=== PATIENT | female | born 1990 | race Hispanic/Latino ===

== ENCOUNTER 2018-03-13 20:29 | Emergency (ER) | payer MEDICAID, SELFPAY ==
[2018-03-13 21:20] LABS: #Basophils 0.1 thou/uL (0.0-0.2); #Eosinphils 0.3 thou/uL (0.0-0.7); #Monocytes 0.7 thou/uL (0.11-0.59); #Neutrophils 8.4 thou/uL (1.40-6.50); %Basophils 0.5 % (0.0-1.0); %Eosinophils 2.3 % (0.0-10.0); %Lymphocytes 24.2 % (21.0-51.0); %Monocytes 5.7 % (0.0-10.0); %Neutrophils 67.2 % (42.0-75.0); Mean Corpuscular HGB CONC 33.5 g/dL (32.0-36.0); Mean Corpuscular Hemoglobin 26.2 pg (27.0-31.0); Mean Corpuscular Volume 78.2 fL (78.0-98.0); Mean Platelet Volume 6.9 fL (7.4-10.4); Platelet Count 301 thou/uL (130-400); RBC Distribution Width 13.2 % (11.5-14.5); Red Blood Cell (RBC) Count 4.57 mill/uL (4.20-5.40); White Blood Cell (WBC) Count 12.5 thou/uL (4.8-10.8)
--- NOTE | 2018-03-14 07:38 | ULT ---
PELVIC ULTRASOUND: HISTORY: Pelvic pain. Heavy vaginal bleeding. COMPARISON: None. TECHNIQUE: Transabdominal and endovaginal imaging of the pelvis was performed. Ovaries are interrogated with gr ay scale, color flow, Doppler imaging, and spectral waveform analysis. FINDINGS: The uterus is identified, measuring 7.0 x 11.1 x 5.8 cm. Evaluation of the uterus is limited on the endovaginal images. Myometrial masses could easily be obscured. There is an anechoic focus in what appears to be the lower uterine segment on the endovaginal images. Additional images demonstrate the anechoic focus to be higher up and toward the fundus of the uteru s. Dye Maker states that this anechoic focus moved during real-time imaging. Within this anechoic focus, which is presumed to be the gestational sac, is a questionable yolk sac. Possible pole with a diameter of 1.05 cm corresponding to a gestational age of 7 weeks 1 day. No definite h eart tones. No free fluid. The left ovary has a normal echotexture measuring 0.8 x 2.6 x 1.7 cm. The right ovary has a normal e chotexture measuring 2.8 x 2.4 x 1.6 cm. OVARIAN DOPPLER: Vascular flow to both ovaries. IMPRESSION: Anechoic focus which has a different location during real-time imaging varying between the uterine fu ndus and the lower uterine segment. This anechoic focus also has irregular shape during real-time im aging. There does appear to be a pole without evidence of heart tones. Findings may rep resent an impending spontaneous . Followup ultrasound and serial beta HCGs are recommended. POS: [facility]
[2018-03-15 19:03] LABS: Chlamydia by PCR Not Detected (NotDetected); GC by PCR Not Detected (NotDetected)
== END 2018-03-14 00:24 | disposition home or self-care (01) ==
LOC: ERS 20:29
DX: O20.0 Threatened abortion (principal); Z3A.09 9 weeks gestation of pregnancy
CPT/HCPCS: 36415; 76856; 84702; 85025; 86900; 86901; 87480; 87491; 87510; 87591; 87660

== ENCOUNTER 2018-09-21 17:37 | Emergency (ER) | payer SELFPAY ==
[2018-09-21 18:24] LABS: #Basophils 0.1 thou/uL (0.0-0.2); #Eosinphils 0.2 thou/uL (0.0-0.7); #Lymphocytes 2.5 thou/uL (1.20-3.40); #Monocytes 0.7 thou/uL (0.11-0.59); #Neutrophils 5.8 thou/uL (1.40-6.50); %Basophils 1.1 % (0.0-1.0); %Eosinophils 2.4 % (0.0-10.0); %Lymphocytes 27.2 % (21.0-51.0); %Monocytes 7.7 % (0.0-10.0); %Neutrophils 61.6 % (42.0-75.0); Hemoglobin 12.2 g/dL (12.0-16.0); Mean Corpuscular HGB CONC 31.4 g/dL (32.0-36.0); Mean Corpuscular Hemoglobin 25.1 pg (27.0-31.0); Mean Platelet Volume 7.1 fL (7.4-10.4); Platelet Count 304 thou/uL (130-400); RBC Distribution Width 13.3 % (11.5-14.5); Red Blood Cell (RBC) Count 4.85 mill/uL (4.20-5.40); White Blood Cell (WBC) Count 9.4 thou/uL (4.8-10.8)
[2018-09-21 18:47] LABS: BHCG - Serum POSITIVE (NEGATIVE); Pregs Control Background? CLEAR/WHITE (CLR/WHITE); Pregs Control Bar Appear? YES (CONTROL BAR)
--- NOTE | 2018-09-21 21:57 | ULT ---
PELVIC ULTRASOUND: HISTORY: female with bleeding. COMPARISON: None. TECHNIQUE: Multiplanar driver-scale and color Doppler images were obtained in a transabdominal and transvaginal pe lvic ultrasound. Spectral analysis of the Doppler waveforms of the ovaries was performed. FINDINGS: There is a hypoechoic, cystic appearing structure in the lower uterine segment. This has a mean sac diameter of 0.64 cm, which would estimate the gestational age at 5 weeks 2 days. No pole or yo lk sac is seen within this potential gestational sac. No free fluid is seen in the pelvis. Both ovaries are normal in size and appearance and demonstrate normal internal flow. IMPRESSION: Possible low intrauterine . The patient may be ongoing a spontaneous . POS: [facility]
== END 2018-09-21 21:26 | disposition home or self-care (01) ==
LOC: ERS 17:37
DX: O20.0 Threatened abortion (principal); Z3A.01 Less than 8 weeks gestation of pregnancy
CPT/HCPCS: 36415; 76856; 84702; 84703; 85025; 86900; 86901

== ENCOUNTER 2022-01-25 17:01 | Emergency (ER) | payer SELFPAY ==
[2022-01-25 17:57] LABS: #Basophils 0.1 thou/uL (0.0-0.2); #Eosinphils 0.1 thou/uL (0.0-0.7); #Lymphocytes 2.2 thou/uL (1.20-3.40); #Monocytes 0.6 thou/uL (0.11-0.59); #Neutrophils 6.5 thou/uL (1.40-6.50); %Basophils 0.6 % (0.0-1.0); %Eosinophils 1.2 % (0.0-10.0); %Lymphocytes 23.3 % (21.0-51.0); %Monocytes 6.5 % (0.0-10.0); %Neutrophils 68.5 % (42.0-75.0); Hemoglobin 12.1 g/dL (12.0-16.0); Mean Corpuscular Hemoglobin 27.9 pg (27.0-31.0); Mean Corpuscular Volume 84.7 fl (78.0-98.0); Mean Platelet Volume 7.2 fL (7.4-10.4); Platelet Count 273 10x3/uL (130-400); RBC Distribution Width 13.1 % (11.5-14.5); Red Blood Cell (RBC) Count 4.32 mill/uL (4.20-5.40); White Blood Cell (WBC) Count 9.5 10x3/uL (4.8-10.8)
[2022-01-25 19:12] LABS: Bilirubin Negative (Negative); Blood, Urine Negative (Negative); Clarity Clear (Clear); Glucose, Urine (Dipstick) Normal (Negative); Ketone, Urine Trace mg/dL (Negative); Leukocyte Negative Leu/uL (Negative); Nitrite Negative (Negative); Protein, Urine (Dipstick) Negative (Neg-Trace); Specific Gravity, Urine 1.013 (1.002-1.036); Urobilinogen Normal mg/dL (Less than 2)
== END 2022-01-25 20:11 | disposition home or self-care (01) ==
LOC: ERS 17:01
DX: O46.8X1 Other antepartum hemorrhage, first trimester (principal); Z3A.01 Less than 8 weeks gestation of pregnancy
CPT/HCPCS: 36415; 76856; 81003; 84702; 85025; 86900; 86901; 94760